=== PATIENT | male | born 1985 | race Hispanic/Latino ===

== ENCOUNTER → 2022-08-15 10:02 | Outpatient (CLI) | payer OTHER, SELFPAY ==
[2022-08-15 11:20] LABS: Add Manual Diff / Slide Review NO; Basophils Absolute Auto 0 /uL (0-100); Basophils Percent Auto 0.5 % (0-2); Eosinophils Absolute Auto 400 /uL (0-450); Eosinophils Percent Auto 3.8 % (2-4); Hematocrit 40.7 % (41-53); Hemoglobin 14.2 g/dL (13.5-17.5); Lymphocytes Absolute Auto 3100 /uL (1100-4500); Mean Corpuscular HGB Conc 34.8 % (30-36); Mean Corpuscular Hemoglobin 31.6 PG (26-34); Monocytes Absolute Auto 600 /uL (0-900); Monocytes Percent Auto 5.8 % (3-14); Neutrophils Absolute Auto 5400 /uL (1500-7000); Neutrophils Percent Auto 56.9 % (50-75); Platelet Count 318 X10^3/uL (150-400); Red Blood Cell Count 4.48 X10^6/uL (4.5-5.9); Red Cell Distribution Width 13.9 % (11.6-14.8); White Blood Cell Count 9.4 X10^3/uL (4.5-11.0)
[2022-08-15 11:36] LABS: BUN Creatinine Ratio 13.6 (6-22); Blood Urea Nitrogen 11 mg/dL (9-20); Calcium 9.3 mg/dL (8.4-10.2); Carbon Dioxide 27 mmol/L (22-32); Chloride 99 mmol/L (98-107); Estimated Glomerular Filt Rate > 60 mL/min (>60); Glucose 134 mg/dL (70-100); HEMOLYSIS < 15 (0-50); Potassium 4.3 mmol/L (3.4-5.1); Sodium 139 mmol/L (137-145)
== END ==
PROVIDERS: Referring Provider Orthopaedic Surgery Orthopaedic Surgery of the Spine; Visit Provider Orthopaedic Surgery Orthopaedic Surgery of the Spine
DX: Z01.812 Encounter for preprocedural laboratory examination (principal)
CPT/HCPCS: 36415; 80048; 85025

== ENCOUNTER 2022-09-03 09:20 | Inpatient (IN) | payer OTHER, SELFPAY ==
[2022-08-27 12:51] VITALS: BMI 37.5
[2022-09-03] VITALS (11 sets, daily range): BP systolic 97–138; BP diastolic 54–85; PULSE 88–107; RESP 12–20; TEMP 36.2–37.3; O2SAT 92–99; BMI 38.6
--- NOTE | 2022-09-03 | DI.RAD.S_ITS ---
PROCEDURE: XR LUMBAR SPINE 2-3V INDICATIONS: L5-S1 TLIF TECHNIQUE: 3 views of the lumbar spine were acquired. COMPARISON: None. FINDINGS: Postsurgical changes of L5-S1 posterior fixation by means of bilateral rods and pedicle screws with interbody device. Appropriate position and appearance of the hardware. IMPRESSION: Expected position status post L5-S1 TLIF. Dictated by: Rey Astorga M.D. on 09/03/2022 at 15:15 Approved by: Rey Astorga M.D. on 09/03/2022 at 15:16
[2022-09-03] MEDS: ACETAMINOPHEN 325 MG TABLET 975 MG PO (10:10)
[2022-09-03] MEDS: GABAPENTIN 600 MG TABLET PO (10:11)
[2022-09-03] MEDS: LACTATED RINGERS 1,000 ML 42 ML IV (10:11)
[2022-09-03 10:24] LABS: COVID19 -Nasal RAPID Negative (Negative)
--- NOTE | 2022-09-03 10:30 | PM.PREOP ---
Pre-operative Note COVID-19 COVID-19 status: Negative Result date/Date tested (Pos, Neg/Pending): 09/02/22 Criteria for continued procedure: Expected advancement of disease process, Possibility delay results in more complex future surgery or treatment, Increased loss of function, Continuing or worsening of significant or severe pain, Deterioration of the patient's condition or overall health and Delay expected to result in less-positive ultimate med/surg outcome Interval Note History & Physical reviewed/Exam performed by Physician: Yes Changes to H&P: No
--- NOTE | 2022-09-03 10:34 | SUR.OPER ---
Supine on padded OR bed, head on pillow, arms secured on padded arm boards at <90 degrees abduction, legs uncrossed, safety belt at thigh, tape over blanket over lower legs.
--- NOTE | 2022-09-03 10:45 | SUR.PREOP ---
Pt cad application support specialist used to interpret pashto to belgian for pt. Pt states he understood and had no further concerns or questions.
[2022-09-03] MEDS: CEFAZOLIN 2 GM/100 ML PREMIX 100 ML IV ×2 (11:15→18:16)
[2022-09-03] MEDS: BUPIVACAINE 0.25% (PF) 60 ML, EPINEPHrine 0.3 MG INJ (11:30)
[2022-09-03] MEDS: BUPIVACAINE LIPOSOME 266 MG/20 ML VIAL INJ (11:31)
--- NOTE | 2022-09-03 13:32 | PM.OP.1 ---
Operative Date/Time/Diagnoses Date of procedure: 09/03/22 Time of procedure: 10:30 Pre-op diagnosis: 1. L5-S1 spinal stenosis with history of laminectomy 2. Lumbar radiculopathy Post-op diagnosis: same Procedure & Clinicians Procedure: 1. L5-S1 Postero-lateral and posterior interbody fusion 2. L5-S1 interbody cage placement. 3. L5-S1 decompressive laminectomy with bilateral facetecomies 4. L5-S1 Posterior non-segmental instrumentation 5. Knifley of bone marrow from iliac crest 6. Utilization of microsurgical technique and operating microscope Same procedure as scheduled: Yes Indications: Patient has been having chronic back pain and worsening lumbar radiculopathy due to a work related injury and history of lumbar laminectomy surgery in the past. Patient failed multiple conservative management with worsening pain weakness and numbness in his lower extremity. Patient has been having difficulty performing activity of daily living. After discussing risks benefits of treatment options, patient elected proceed with surgery. Surgeon: Vreito French Rn Occupational Health: Ruby Walton Click Yes if Unassisted: No Anesthesia Type: General Operative Notes Closure Type: primary Specimen(s): none sent Prosthetic devices, grafts, tissues, transplants, or devices: Globus revolve screws, Rise cage Estimated Blood Loss (mL): 50 Blood products transfused: none Procedure in detail: Patient was seen in the preoperative area. Risks and benefits of the surgery was discussed with the patient. Informed consent was obtained from the patient and placed in the chart. Surgical site was marked. Patient was taken to the operative room. General anesthesia was administered. Prophylactic antibiotic was given to the patient less than 30 min before the incision was made. Patient was placed into a prone position on the Marek table. Patient's back was then prepped and draped in the sterile fashion. Time-out was performed at this time. Using AP and lateral C-arm imaging the interval between L5-S1 was identified and marked on patient's back. A 2 inch incision 2 in from midline was made on the left side first. The fascia was incised in line with skin incision. Globus MARS retractors was placed inside the incision and docked onto the L5 lamina. Using microsurgical technique and operating microscope, a L5 laminectomy and L5-S1 facetectomy was performed using a Kerrison rongeur. Patient was found have severe lateral recess and neural foramen stenosis which was fully decompressed after the laminectomy facetectomy. More than 75% of the facets were removed during the process of decompression rendering L5-S1 level grossly unstable and required a fusion procedure at the same time. The disc space at L5-S1 was identified. And a total diskectomy was performed at L5-S1 level. The endplates were decorticated using a rasp and shaver. The total diskectomy and decortication was performed at L5-S1 level in order to to accomplish a L5-S1 fusion. The local bone from the laminectomy and facetectomy was saved for local bone grafting. After the total diskectomy and decortication was completed, Trifecta bone graft material was combined with local bone that was harvested earlier. At this time, a separate skin is incision was made over the iliac crest. A Jamshidi needle was inserted into the iliac crest through a separate skin incision. 5 cc of bone marrow aspiration was obtained through the separate skin incision using a Jamshidi needle from the iliac crest. The bone marrow aspiration was combined with local bone and the Trifecta bone grafting material. The bone grafting material was placed into the L5-S1 interbody space along with a expandable cage. The cage was expanded to its maximum height using the torque limiting screwdriver. At this time a mirror image incision was made on the right side. The fascia was incised in line with the skin incision. Globus MARS retractor was inserted and docked onto the L5-S1 posterolateral gutter. Using the power drill, posterior-lateral decortication was performed at L5-S1 level until bleeding cortical bone was identified. The remaining bone grafting material was placed into the L5-S1 posterior lateral gutter he order to accomplish posterolateral fusion at the L5-S1 level. Using the double C-arm technique, pedicle screws were placed into the L5-S1 pedicles bilaterally. This was done by placing the Jamshidi needle into the pedicles, then placing the guidewires over the Jamshidi needle, and finally placing the cannulated screws over the guidewires bilaterally. After the pedicle screws were placed, 2 titanium rods was locked into the heads of the pedicle screws using locking caps and torque limiting screwdriver. After all the hardware was placed, and confirmed with AP and lateral C-arm imaging, the wound was then irrigated with sterile normal saline and packed with Ray-Tab gauze for 3 min to accomplish hemostasis. After the gauze was removed the deep fascia was closed with #1 Vicryl suture. The subcutaneous layer was closed with 2-0 Vicryl. The skin was closed with skin topher. Patient tolerated the procedure well. There were no complications. Complications: none Post-operative Condition: stable Disposition: PACU Plan for aftercare: Admit to inpatient hospital
[2022-09-03] MEDS: OXYCODONE IR 5 MG TABLET PO (13:59)
[2022-09-03] MEDS: SODIUM CHLORIDE 0.9% 1,000 ML 100 ML IV (14:31)
[2022-09-03] MEDS: OXYCODONE IR 5 MG TABLET 10 MG PO ×2 (16:17→20:27)
[2022-09-03] MEDS: ATORVASTATIN 20 MG TABLET 40 MG PO (20:26)
[2022-09-03] MEDS: SENNOSIDES 8.6 MG TABLET 17.2 MG PO (20:26)
[2022-09-03] MEDS: METFORMIN HCL 500 MG TABLET 1000 MG PO (20:27)
[2022-09-03] MEDS: DOCUSATE 100 MG CAPSULE PO (20:27)
[2022-09-03] MEDS: HYDROMORPHONE 0.5 MG INJ IV (22:31)
[2022-09-03] MEDS: hydrOXYzine pamoate 25 MG CAPSULE PO (22:31)
[2022-09-04] VITALS: BP 125/63; PULSE 103; RESP 17; TEMP 36.9; O2SAT 96
[2022-09-04] MEDS: OXYCODONE IR 5 MG TABLET 10 MG PO ×6 (00:37→21:28)
[2022-09-04] MEDS: SODIUM CHLORIDE 0.9% 1,000 ML 100 ML IV (01:07)
[2022-09-04] MEDS: CEFAZOLIN 2 GM/100 ML PREMIX 100 ML IV (03:14)
[2022-09-04 04:00] VITALS: BP 121/75; PULSE 90; RESP 18; TEMP 36.7; O2SAT 98
[2022-09-04 07:51] VITALS: BP 107/69; PULSE 85; RESP 18; TEMP 36.6; O2SAT 96
[2022-09-04] MEDS: ACETAMINOPHEN 325 MG TABLET 650 MG PO ×2 (09:11→16:21)
[2022-09-04] MEDS: DOCUSATE 100 MG CAPSULE PO ×2 (09:11→21:29)
[2022-09-04 11:00] VITALS: BP 141/85; PULSE 106; RESP 17; TEMP 36.7; O2SAT 96
--- NOTE | 2022-09-04 11:15 | OT.IP.EVAL ---
Current Diagnoses Other intervertebral disc displacement, lumbar region (09/03/22) Postlaminectomy syndrome, not elsewhere classified (09/03/22) Surgery Performed Operation Date: 09/03/22 10:45 Actual Procedures p L5 -S1 TLIf w. instrumentation - Verito French MD Past Medical History Acid reflux Anxiety COVID-19 virus infection (11/2021) Depression Diabetes (04/2022) HLD (hyperlipidemia) Guatemalan speaking patient Surgical History (Last Reviewed 09/04/22 @ 11:52 by Ruby Walton PA-C) History of lumbar surgery (2014) Hx of shoulder surgery (2013) Occupational Therapy Inpatient Evaluation/Re-Eval M1 PT/OT-IP Prior Functional Status Start: 09/04/22 08:11 Freq: NEEDED Status: Active Protocol: Document 09/04/22 11:05 [facility] (Rec: 09/04/22 11:15 [facility] [id number]) Medical Review Prior Functional Status Medical History Reviewed Yes Diet/Fluid Consistency Regular Communication WNL Mobility and Gait used SPC, has FWW Activities of Daily Living and IADL's modified indep Prior Functional Level (Other details) limited by pain Social History Household Members spouse,children Living Arrangements Apartment/Condo Number of Stairs To Enter/Railing? 14, has railing Home Environment Standard Height Toilet,Tub/ Shower Home Equipment Front Wheel Walker,Straight Cane Employment Status Unknown M2 OT-IP Current Condition Start: 09/04/22 13:06 Freq: Status: Active Protocol: Document 09/04/22 10:23 [facility]3] (Rec: 09/04/22 13:23 [facility]3] [id number]) Occupational Therapy Current Condition Current Condition Evaluation Date 09/04/22 Treatment Diagnosis S/p L5-S1 TLIF Diagnosis Onset Date 09/03/22 Post Operative Precautions Lumbar Precautions Log Roll,No Twisting,Limit Bending,Lifting Restriction of 10 lbs,Gait Belt above Incisional Area M3 OT- IP Subjective and Pain Start: 09/04/22 13:06 Freq: Status: Active Protocol: Document 09/04/22 10:23 [facility]3] (Rec: 09/04/22 13:23 [facility]3] [id number]) OT- Subjective Occupational Therapy Visit Type Type Initial Evaluation Visit Start Time 10:23 Visit Stop Time 11:15 Total Visit Minutes 52 Occupational Therapy Visit Comments Patient Comments Pt agreed to get up for OT eval. Patient/Caregiver Goals To go home. OT Pain Assessment Pain When Pain Assessed During Mobility Pain Present Pain Present Pain Reported Location back Intensity 6 Scale Used Numeric (0 - 10) M4 OT- IP ADL's Start: 09/04/22 13:06 Freq: Status: Active Protocol: Document 09/04/22 10:23 [facility]3] (Rec: 09/04/22 13:23 [facility]3] [id number]) OT NTS-Ezlk-Ttoqrhs General Evaluation Self-Feeding Ability Independent OT ADL-Grooming Comments OT Grooming Comments Pt not wanting to do at this time. OT ADL-Oral Care Comments Oral Care Comments Pt refused. Educated best to spit into a cup or hinge at his hips to best follow his back precautions. OT ADL-Dressing General Eval Lower Body Dressing Ability Maximum Assistance Areas Needing Assistance Socks Comments OT Dressing Comments ABle to show pt LB dressing equipment. Pt states his to assist him. OT ADL-Toileting Comments OT Toileting Comments Pt able to reach underneath appropriately when readjusting his gown. Use of wet one can also be helpful to the pt. OT ADL-Bathing Comments OT Bathing Comments Pt can benefit from a shower chair for safety to shower or sponge off intially and have his present. M5 OT- IP IADL's Start: 09/04/22 13:06 Freq: Status: Active Protocol: Document 09/04/22 10:23 [facility]3] (Rec: 09/04/22 13:23 [facility]3] [id number]) OT-Instrumental Activities of Daily Living Home Safety Awareness Awareness of Need for Assistance at Home Good Awareness Ability to Problem Solve Emergency Able to Problem Solve Situations M6 OT- IP Functional Cognition Start: 09/04/22 13:06 Freq: Status: Active Protocol: Document 09/04/22 10:23 [facility]3] (Rec: 09/04/22 13:23 [facility]3] [id number]) Cognitive Factors Limiting Selfcare Function Cognitive Ability Level of Alertness Alert Patient Orientation Name,Age,Birthday,Month,Date, Year,Day of Week,Place, Situation Attention Span Ability Capable of Focused Attention, Capable of Sustained Attention Ability to Follow Commands Able to Follow One Step Commands Cognitive Comments Cognitive Assessment Comments Pt needing increased time to follow commands but able to follow back precautions well for ADL and mobility needs. OT- Vision and Hearing OT- Hearing Assessment OT- Hearing Assessment WFL OT- Vision Assessment Visual Acuity WFL M7 OT- IP Mobility and Balance Start: 09/04/22 13:06 Freq: Status: Active Protocol: Document 09/04/22 10:23 [facility]3] (Rec: 09/04/22 13:23 [facility]3] [id number]) OT- Bed Mobility Assessment Supine to Sit Supine to Sit Assist Standby Assistance Sit to Supine Sit to Supine Assist Standby Assistance OT-Transfer Assessment Sit to and From Stand Sit to and from Stand Contact Guard Assistance Transfers Transfer Ability Contact Guard Assistance Comments Mobility Comments SBA for log rolling and CGA to stand to FWW and able to walk in the room with CGA. Pt has a high bed at home and able to practice from that height. Pt will need more assist if coming to stand from a lower surface. OT- Balance Assessment Sitting Balance and Reactions Static Sitting Balance Ability Normal Dynamic Sitting Balance Ability Good Standing Balance and Reactions Static Standing Balance Ability Fair Dynamic Standing Balance Ability Fair M8 OT- IP Objective Assessments Start: 09/04/22 13:06 Freq: Status: Active Protocol: Document 09/04/22 10:23 [facility]3] (Rec: 09/04/22 13:23 [facility]3] [id number]) OT-Muscle Tone Assessment Muscle Tone WNL Yes M9 OT- IP Assessment and Plan Start: 09/04/22 13:06 Freq: Status: Active Protocol: Document 09/04/22 10:23 [facility]3] (Rec: 09/04/22 13:23 [facility]3] [id number]) OT Summary Assessment and Plan Potential Rehabilitation Potential Good Analytic Complexity at Evaluation Low Summary OT Impairments Pain,Balance,Functional Mobility,Dressing,Toileting, Bathing,Toilet Transfers, Shower Transfers Progress Towards Goals Progressing Toward Goals Assessment Summary Pt low complexity and main barriers are steps, pain, and will need assist for LB dressing and showering needs. Pt states has a supportive to assist pt at home. Pt to go home when medically stable. Goals Dressing Goal Minimal Assistance Toileting Goal Independent Bathing Goal Minimal Assistance Toilet Transfer Goal Independent Shower Transfer Goal Contact Guard Assistance Days to Meet Goals 2 Frequency of Treatment Frequency Of Treatment Once a Day Treatment Plan OT Treatment Plan ADL Training,Functional Mobility,Patient/Family Education,Discharge Planning Discharge Recommendations OT Discharge Recommendations Home with Assistance Home Equipment Needs shower chair Transportation Needs at Discharge Private Vehicle
--- NOTE | 2022-09-04 11:15 | PT.IIE ---
Current Diagnoses Other intervertebral disc displacement, lumbar region (09/03/22) Postlaminectomy syndrome, not elsewhere classified (09/03/22) Surgery Performed Operation Date: 09/03/22 10:45 Actual Procedures p L5 -S1 TLIf w. instrumentation - Verito French MD Surgical History (Last Updated 08/27/22 @ 13:19 by Danielle Glover RN) History of lumbar surgery (2014) Hx of shoulder surgery (2013) Medical History Acid reflux Anxiety COVID-19 virus infection (11/2021) Depression Diabetes (04/2022) HLD (hyperlipidemia) Dominican speaking patient Physical Therapy Inpatient Evaluation/Re-Eval M1 PT/OT-IP Prior Functional Status Start: 09/04/22 08:11 Freq: NEEDED Status: Active Protocol: Document 09/04/22 11:05 [facility] (Rec: 09/04/22 11:15 [facility] [id number]) Medical Review Prior Functional Status Medical History Reviewed Yes Diet/Fluid Consistency Regular Communication WNL Mobility and Gait used SPC, has FWW Activities of Daily Living and IADL's modified indep Prior Functional Level (Other details) limited by pain Social History Household Members spouse,children Living Arrangements Apartment/Condo Number of Stairs To Enter/Railing? 14, has railing Home Environment Standard Height Toilet,Tub/ Shower Home Equipment Front Wheel Walker,Straight Cane Employment Status Unknown M2 PT-IP Current Condition Start: 09/04/22 08:11 Freq: NEEDED Status: Active Protocol: Document 09/04/22 11:05 [facility] (Rec: 09/04/22 11:15 [facility] [id number]) Physical Therapy Current Condition Current Condition Evaluation Date 09/04/22 Treatment Diagnosis weakness s/p lumbar surgery Onset Date 09/03/22 M3 PT-IP Subjective Start: 09/04/22 08:11 Freq: NEEDED Status: Active Protocol: Document 09/04/22 11:05 [facility] (Rec: 09/04/22 11:15 [facility] [id number]) Subjective Physical Therapy Visit Type Type Initial Evaluation Visit Start Time 10:45 Visit Stop Time 11:05 Total Visit Minutes 20 Physical Therapy Visit Comments Patient Goals return home with assitance of Therapy Pain Assessment Pain When Pain Assessed During Mobility Pain Present Pain Present Pain Reported Location back Intensity 7 Description Acute,Spasm Pain Management Techniques Apply Cold,Distraction, Modification of Treatment, Timing of Activity with Medications M4 PT-IP Mobility and Gait Start: 09/04/22 08:11 Freq: NEEDED Status: Active Protocol: Document 09/04/22 11:05 [facility] (Rec: 09/04/22 11:15 [facility] [id number]) PT-Bed Mobility Assessment Rolling Type of Rolling Log Rolling,Roll to Right Level of Assist Standby Assistance Supine to Sit Supine to Sit Contact Guard Assistance Sit to Supine Sit to Supine Standby Assistance Scooting Scooting to Edge of Bed Standby Assistance PT-Transfer Assessment Sit to and From Stand Sit to and from Stand Contact Guard Assistance Transfers Transfer Technique ambulated Transfer Ability Level of Assist Contact Guard Assistance Comments Mobility Comments patient is 6'1, has high bed. Transfer sit to stand with bed elevated. Gait Assessment Gait Gait Assistance Required: Contact Guard Assist Distance (Feet) 20 Able to Maintain Weight Bearing Status Yes During Gait Assistive Devices Assistive Device Gait Belt,Front Wheeled Walker Orthotic/Prosthetic Devices or Brace: No Gait Deviations General Gait Pattern Antalgic,Decreased Stride Length,Decreased Feet Clearance Factors Limiting Gait Function Factors Limiting Gait Function Decreased Sensation,Decreased Strength,Pain Comments Gait Comments heavy use of UE's on walker, slow gait. Pain level 7/10 Stair Climbing Assessment Comments Stair Climbing Comments will attempt in PM if patient laith. Patient has 14 stairs to get up to apartment PT-Balance Assessment Sitting Balance and Reactions Static Sitting Balance Ability Normal Dynamic Sitting Balance Ability Normal Standing Balance and Reactions Static Standing Balance Ability Fair Dynamic Standing Balance Ability Fair Device Used FWW M5 PT-IP Objective Assessments Start: 09/04/22 08:11 Freq: NEEDED Status: Active Protocol: Document 09/04/22 11:05 [facility] (Rec: 09/04/22 11:15 [facility] [id number]) Orientation Orientation/Cognition Level of Alertness Alert Orientation Name,Place,Situation Language Function Ability No Deficits Noted Safety Awareness Understands Safety Issues Memory Description No Deficits Noted Gross Range of Motion Upper Extremity ROM Assessment Within Functional Limits Lower Extremity ROM Assessment Within Functional Limits Strength Upper Extremity Strength Assessment Within Functional Limits Lower Extremity Strength Assessment Left Impaired Sensation Assessment Sensation Gross Sensation Left LE Impaired Sensation Description Numbness,Pain M6 PT-IP Treatment Start: 09/04/22 08:11 Freq: NEEDED Status: Active Protocol: Document 09/04/22 11:05 [facility] (Rec: 09/04/22 11:15 [facility] [id number]) Physical Therapy Treatment Other Treatments Other Treatment Performed log roll, bed mobility M7 PT-IP Assessment and Plan Start: 09/04/22 08:11 Freq: NEEDED Status: Active Protocol: Document 09/04/22 11:05 [facility] (Rec: 09/04/22 11:15 [facility] [id number]) PT Summary Assessment and Plan Potential Rehabilitation Potential Good Status of Condition at Evaluation Evolving Summary Impairments Pain,Strength,Bed Mobility, Transfers,Gait,Activity Tolerance Assessment Summary Patient s/p lumbar surgery with limitations in mobility primarily due to pain as well as radicular symptoms left LE. Has 14 stairs at home that he will have to ambulate to get into his apartment. Will benefit from PT to help him improve his mobility skills so he can be safely discharged home with the assistance of his . Goals Bed Mobility Goal Independent Transfer Goal Independent Gait Goal Independent Gait Distance 100 Days to Meet Goals 3 Frequency of Treatment Frequency Of Treatment Twice a Day Treatment Plan Physical Therapy Treatment Plan Bed Mobility Training,Transfer Training,Gait Training,Post Op Education,Hot or Cold Pack Precautions Lumbar Precautions Log Roll,No Twisting,Limit Bending,Lifting Restriction of 10 lbs,Gait Belt above Incisional Area Recommendations To Nursing Amount of Assist Needed 1 Person Assist Discharge Recommendations PT Discharge Recommendations Home with Assistance Transportation Needs at Discharge Private Vehicle
--- NOTE | 2022-09-04 11:50 | P.DS_ITS ---
History of Present Illness History of Present Illness Date Patient Seen: 09/04/22 Time Patient Seen: 07:30 Chief complaint: Translaminar Interbody Fusion/Laminotomy Narrative: Patient is resting comfortably in bed this morning. He states he is doing well and having minimal pain that is well controlled with medication. He would like to go home today if therapy goes well and he is able to manage stairs safely. Discharge Providers Provider Date of admission: 09/03/22 09:20 Discharge Date: 09/04/22 Primary care physician: Nadine Portillo Consults: 09/03/22 14:11 Consult to Occupational Therapy Evaluate & Treat Comment: Physician Instructions: Evaluate and treat Consult to Physical Therapy Evaluate & Treat Comment: Physician Instructions: Evaluate and Treat Discharge provider: Ruby Wlaton PA-C Summary Hospital Course Discharge Diagnosis: Status post TLIF Hospital Course: Operative Date/Time/Diagnoses Date of procedure: 09/03/22 Time of procedure: 10:30 Pre-op diagnosis: 1. L5-S1 spinal stenosis with history of laminectomy 2. Lumbar radiculopathy Post-op diagnosis: same Procedure & Clinicians Procedure: 1. L5-S1 Postero-lateral and posterior interbody fusion 2. L5-S1 interbody cage placement. 3. L5-S1 decompressive laminectomy with bilateral facetecomies 4. L5-S1 Posterior non-segmental instrumentation 5. [place] of bone marrow from iliac crest 6. Utilization of microsurgical technique and operating microscope Same procedure as scheduled: Yes Indications: Patient has been having chronic back pain and worsening lumbar radiculopathy due to a work related injury and history of lumbar laminectomy surgery in the past. Patient failed multiple conservative management with worsening pain weakness and numbness in his lower extremity.? Patient has been having difficulty performing activity of daily living.? After discussing risks benefits of treatment options, patient elected proceed with surgery. Surgeon: Verito French Multimedia Services Manager: Ruby Walton Click Yes if Unassisted: No Anesthesia Type: General Operative Notes Closure Type: primary Specimen(s): none sent Prosthetic devices, grafts, tissues, transplants, or devices: Globus revolve screws, Rise cage Estimated Blood Loss (mL): 50 Blood products transfused: none Status at Discharge Cognitive/behavioral status at discharge: oriented Overall status at discharge: patient is progressing back to baseline Exam Vital Signs (past 8 hours): - 09/04/22 04:00 09/04/22 07:51 Temperature 98.1 F 97.8 F Pulse Rate 90 85 Respiratory Rate 18 18 Blood Pressure 121/75 107/69 Pulse Oximetry 98 96 Oxygen Flow Rate 0 Oxygen Delivery Method Room Air Oxygen Flow Rate 0 Narrative Exam Narrative: Awake, alert, and oriented. Intraoperative dressing clean, dry, and intact. Strength and sensation intact to bilateral lower extremities. Bilateral calves soft, compressible, nontender with no palpable cords or masses. PFSH Medical History Acid reflux Anxiety COVID-19 virus infection (11/2021) Depression Diabetes (04/2022) HLD (hyperlipidemia) [place] speaking patient Surgical History History of lumbar surgery (2014) Hx of shoulder surgery (2013) Social History household members: spouse and children Smoking Status: Never smoker alcohol intake: current Discharge Assessment & Plan Assessment and Plan Assessment: Patient is progressing as expected after surgery. Plan of Treatment: Plan to discharge to home today if patient is able to manage stairs safely and is cleared by Physical therapy. Patient aware of mobility restrictions. He will follow up with Orthopedics as scheduled, 2 weeks after surgery. Discharge Plan Discharge Plan Patient Disposition: Home Provider Discharge Comment: Discharge to home if safely able to manage stairs and is cleared by PT Discharge orders & Medications Prescriptions: New acetaminophen 325 mg Tablet 650 mg PO Q6HR PRN (Reason: Pain, Mild (1-3)) Qty: 120 0RF oxycodone 5 mg Tablet 5 mg PO Q3HR PRN (Reason: Pain, Severe (7-10)) Qty: 40 0RF hydroxyzine pamoate 25 mg Capsule 25 mg PO Q4HR PRN (Reason: Nausea And Vomiting) Qty: 40 0RF Continued atorvastatin 40 mg Tablet 40 mg PO BEDTIME metformin 1,000 mg tablet 1,000 mg PO 2100 Patient Comments: TAKE 1 TABLET BY MOUTH TWICE DAILY WITH MEALS Follow up/Referrals: Nadine Portillo ARNP [Primary Care Provider] - Verito French MD [Physician] - As previously scheduled Diet/Activity/Treatments Diet: Diet as Tolerated Activity: Up and walking as tolerated. Skin/Wound/Dressing Care Report to your healthcare provider any signs of infection, such as:: chills, fever, night sweats, increased pain, unusual drainage and unusual redness Dressing: Keep dressing clean, dry, and intact until 2 week follow-up visit with Orthopedics. If dressing becomes wet please contact our office for dressing change. Visit Report/Discharge Packet Instructions: DI for Transforaminal Lumbar Interbody Fusion Stand Alone Forms: Patient Portal/API, Stroke Signs & Symptoms, Surgery Discharge Discharge Data Primary Care Provider: Nadine Portillo VTE Deep Vein Thrombosis/Pulmonary Embolism Present on Admission: No
[2022-09-04] MEDS: hydrOXYzine pamoate 25 MG CAPSULE PO (13:23)
--- NOTE | 2022-09-04 13:56 | CM.DANOTE ---
Addendum entered by NELLIE Kinney 09/04/22 15:35: ADD: Per PT, attempted stairs this afternoon and pt unable to complete due to pain and pt currently not stable for d/c home this evening. Will attempt again tomorrow morning. BF Original Note: Patient is a 37 yo male who was admitted on 09/03/22 for TLIF. Pt has L&I for this admission and his PCP is Dr. Nadine Portillo. EMR was reviewed. Per Ortho PA, pt tolerated procedure well and to keep working with PT/OT today and possible d/c this evening if cleared by PT/OT. Per PT/OT, pt able to participate in therapies but will need to do stairs this afternoon as he has 14 stairs to enter his apartment. Will work with his this afternoon to determine if safe for home today vs tomorrow. SW met bedside with pt and explained role and pt understands and can speak Ivorian but Hungarian is his primary language. Pt confirms he lives in [place] with his and kids in an apt on the second story and no elevator. Pt is typically independent at baseline with ADL's but has been needing a cane lately for ambulation and does have a walker at home for use after surgery. Pt states his spouse is available and able to provide assist as needed and can provide transport at d/c and pt is hopeful for home this evening if possible and does not anticipate any needs. Plan: SW to follow for afternoon PT with stairs to determine if safe for d/c home tonight vs tomorrow and any further identified discharge planning needs. NELLIE Kinney Discharge Planning/Care Management CM Discharge Assessment Start: 09/04/22 13:54 Freq: Status: Active Protocol: Document 09/04/22 13:54 BF (Rec: 09/04/22 13:56 [id number]) Discharge Planning Assessment Assigned Licensed Occupational Therapy Assistant NELLIE Pineda DPOA/Assigned Designee Name informally spouse Advance Directives? No Advance Directives on File No History Provided By Patient,Medical Record Has Patient been admitted in last 30 No days? Prior Living Arrangements Apartment/Condo Household Members spouse,children Type of transporation used prior to Drives own vehicle admit Independent with ADL's Yes Is patient alert and oriented? Yes Caregiver for Another Yes: children at home Community Services used prior to Physical Therapy admission: [facility] Already Rented / Owned FWW / Walker,Cane Patient/Family Preference OP PT Therapy Barriers to Discharge No Discharge Plan Home Community Services Physical Therapy Transportation Arrangement Spouse or brother likely to provide transport at d/c Referrals Initiated None needed Whiteboard Updated in Patient Room with Yes name and ext. 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 Completed with Language Exchange [phone] EX75 Diagnostic Results BMP/CMP,CBC Comment Labs @ 08/15/22 Primary Care Provider Nadine Portillo Seen Specialist in Last 12 Months Yes Specialist Seen Orthopedist,Other Primary Language Manager Provider Relations Required Yes Comment Language Exchange [phone] EX40 Height 185.42 cm Weight 129.274 kg Body Mass Index (BMI) 37.5 Hearing Ability Normal Visual Impairment No Limitations Visual Assist None Dentition Type Teeth, Natural Present Barriers to Learning Language Hx Anesthesia Reactions No Hx Family Anesthesia Reaction No Hx Malignant Hyperthermia No Hx Blood Transfusions No Anesthesia Review Requested No Production Officer No alcohol intake current alcohol intake frequency a few times a week Smoking Status Never smoker Substance Use Type marijuana Comment Pt advised not to smoke marijuana 24 hours prior to surgery Pain Present Pain Reported Musculoskeletal Symptoms Abnormal Gait,Back Pain, Difficulty Walking,Numbness, Radiating Pain into Limb History of Falling (Recent or History of Yes ) Patient is completely paralyzed or No completely immobile Prosthesis or Orthotic Device Cane Mental Status Oriented to own ability Is patient on oxygen? No Does patient have [place]/SOB No Hx Sleep Apnea No Currently Taking a Beta Lia No Hx Chest Pain Yes: Related to anxiety Hx SOB No Hx Syncope or Dizziness No Anti-Coagulant Therapy No Has a Score Caller No Cardiac Testing No Hx Pacemaker/ICD No Pacemaker Rep Required? No Diet Type At Home Regular,Diabetic Dysphagia No Gastrointestinal Symptoms Constipation,Reflux Urinary Catheter Present No Hx Urinary Self Catheterization No Diabetes Yes: Pt checks blood sugar 3x/ week Hx Drug Resistant Organism No Presence of External or Internal Medical No Devices Received a COVID vaccine? Yes Received all doses? No Marital Status Lives With spouse,children Current Living Arrangements Apartment/Condo Number of Floors (Floors) One Floor Support System Spouse Does the Patient Have Assistance After Yes Surgery Patient Discharge Plan Description Return Home Comment Pt advised overnight length of stay per surgeon Feels Safe in Current Environment Yes Been Physically Hurt or Threatened By a No Person in Current Environment Do you have thoughts of harming yourself None or others? Are you currently considering suicide? No Do you have a plan to hurt yourself or No Plan others? Do You Have Any Spiritual Beliefs That No May Affect Your HC Choices? Do You Have Any Cultural Practices That No May Affect Your HC Choices? Comment Druze Who Can We Speak to About Patient's Care Family, friends Identifying Code for Release of Patient Declines to issue Information Health Care Proxy/Next of Kin Koki () Health Care Proxy Emergency Contact Name oKki () Emergency Contact Advance Directives? No Power of Career Placement Specialist Yes Power of Career Placement Specialist Name Koki () Power of Career Placement Specialist PAC Instructions Diabetes instructions, Medications to take/avoid, Nasal antibiotic,No ETOH/ petroleum product on skin DOS, NPO,Pre-surgical wash,Sturdy shoes/comfortable clothes,Do not bring valuables and remove jewelry
[2022-09-04] MEDS: HYDROMORPHONE 0.5 MG INJ IV (14:24)
--- NOTE | 2022-09-04 14:36 | PT.IPTN ---
Current Diagnoses Other intervertebral disc displacement, lumbar region (09/03/22) Postlaminectomy syndrome, not elsewhere classified (09/03/22) Surgery Performed Operation Date: 09/03/22 10:45 Actual Procedures p L5 -S1 TLIf w. instrumentation - Verito French MD Physical Therapy Treatment Note M2 PT-IP Current Condition Start: 09/04/22 08:11 Freq: NEEDED Status: Active Protocol: Document 09/04/22 14:27 [facility] (Rec: 09/04/22 14:36 [facility] [id number]) Physical Therapy Current Condition Current Condition Evaluation Date 09/04/22 Treatment Diagnosis weakness s/p lumbar surgery Onset Date 09/03/22 M3 PT-IP Subjective Start: 09/04/22 08:11 Freq: NEEDED Status: Active Protocol: Document 09/04/22 14:27 [facility] (Rec: 09/04/22 14:36 [facility] [id number]) Subjective Physical Therapy Visit Type Type Treatment Note Visit Start Time 13:55 Visit Stop Time 14:28 Total Visit Minutes 33 Number of HOMEMAKER COMPANION Visits 0 Physical Therapy Visit Comments Patient Comments States his pain is 5/10 at rest, 7/10 sitting. With trial stairs reported 10+ pain Patient Goals return home with assitance of Therapy Pain Assessment Location back Intensity 7 Description Acute,Spasm Pain Management Techniques Apply Cold,Distraction, Modification of Treatment, Timing of Activity with Medications M4 PT-IP Mobility and Gait Start: 09/04/22 08:11 Freq: NEEDED Status: Active Protocol: Document 09/04/22 14:27 [facility] (Rec: 09/04/22 14:36 [facility] [id number]) PT-Bed Mobility Assessment Rolling Type of Rolling Log Rolling,Roll to Right Level of Assist Standby Assistance Supine to Sit Supine to Sit Minimal Assistance Scooting Scooting to Edge of Bed Standby Assistance PT-Transfer Assessment Sit to and From Stand Sit to and from Stand Minimal Assistance Comments Mobility Comments min assist transfers sit to stand were from elevated bed and from w/c with 2 pillows on seat to raise up Gait Assessment Gait Gait Assistance Required: Contact Guard Assist Distance (Feet) 40 Able to Maintain Weight Bearing Status Yes During Gait Assistive Devices Assistive Device Gait Belt,Front Wheeled Walker Orthotic/Prosthetic Devices or Brace: No Gait Deviations General Gait Pattern Antalgic,Decreased Stride Length,Decreased Feet Clearance Factors Limiting Gait Function Factors Limiting Gait Function Decreased Sensation,Decreased Strength,Pain Comments Gait Comments heavy use of UE's on walker, slow gait. Pain level 6/10 with gait on level Stair Climbing Assessment Evaluation Level of Assist On Stairs Moderate Assistance Devices Stair Climbing Assistive Devices Straight Cane,Left Railing Technique/Endurance Number of Steps Climbed 0 Comments Stair Climbing Comments attempted to climb stairs, unable, reporting 10/10 pain with attempt PT-Balance Assessment Sitting Balance and Reactions Static Sitting Balance Ability Normal Dynamic Sitting Balance Ability Normal Standing Balance and Reactions Static Standing Balance Ability Fair Dynamic Standing Balance Ability Fair Device Used FWW M5 PT-IP Objective Assessments Start: 09/04/22 08:11 Freq: NEEDED Status: Active Protocol: Document 09/04/22 11:05 [facility] (Rec: 09/04/22 11:15 [facility] [id number]) Orientation Orientation/Cognition Level of Alertness Alert Orientation Name,Place,Situation Language Function Ability No Deficits Noted Safety Awareness Understands Safety Issues Memory Description No Deficits Noted Gross Range of Motion Upper Extremity ROM Assessment Within Functional Limits Lower Extremity ROM Assessment Within Functional Limits Strength Upper Extremity Strength Assessment Within Functional Limits Lower Extremity Strength Assessment Left Impaired Sensation Assessment Sensation Gross Sensation Left LE Impaired Sensation Description Numbness,Pain M6 PT-IP Treatment Start: 09/04/22 08:11 Freq: NEEDED Status: Active Protocol: Document 09/04/22 14:27 [facility] (Rec: 09/04/22 14:36 [facility] [id number]) Physical Therapy Treatment Education Education Provided Precautions,Safety Other Treatments Other Treatment Performed log roll, bed mobility M7 PT-IP Assessment and Plan Start: 09/04/22 08:11 Freq: NEEDED Status: Active Protocol: Document 09/04/22 14:27 [facility] (Rec: 09/04/22 14:36 [facility] [id number]) PT Summary Assessment and Plan Potential Rehabilitation Potential Good Status of Condition at Evaluation Evolving Summary Impairments Pain,Strength,Bed Mobility, Transfers,Gait,Activity Tolerance Assessment Summary Patient able to double ambulation on level surface gait this afternoon, but was unable to ambulate on stairs due to severity of pain. He is not yet ready to discharge home. Will see again in am. Goals Bed Mobility Goal Independent Transfer Goal Independent Gait Goal Independent Gait Distance 100 Days to Meet Goals 3 Frequency of Treatment Frequency Of Treatment Twice a Day Treatment Plan Physical Therapy Treatment Plan Bed Mobility Training,Transfer Training,Gait Training,Post Op Education,Hot or Cold Pack Precautions Lumbar Precautions Log Roll,No Twisting,Limit Bending,Lifting Restriction of 10 lbs,Gait Belt above Incisional Area Recommendations To Nursing Amount of Assist Needed 1 Person Assist Discharge Recommendations PT Discharge Recommendations Home with Assistance Transportation Needs at Discharge Private Vehicle
[2022-09-04 15:00] VITALS: BP 130/80; PULSE 97; RESP 19; O2SAT 99
[2022-09-04 20:00] VITALS: BP 125/78; PULSE 98; RESP 18; TEMP 36.8; O2SAT 99
[2022-09-04] MEDS: ATORVASTATIN 20 MG TABLET 40 MG PO (21:29)
[2022-09-04] MEDS: SENNOSIDES 8.6 MG TABLET 17.2 MG PO (21:29)
[2022-09-04] MEDS: METFORMIN HCL 500 MG TABLET 1000 MG PO (21:29)
[2022-09-05] MEDS: OXYCODONE IR 5 MG TABLET 10 MG PO ×4 (02:25→16:07)
[2022-09-05] MEDS: hydrOXYzine pamoate 25 MG CAPSULE PO ×4 (02:25→16:07)
[2022-09-05 04:00] VITALS: BP 118/69; PULSE 99; RESP 16; TEMP 36.5; O2SAT 94
[2022-09-05] MEDS: HYDROMORPHONE 0.5 MG INJ IV (09:15)
[2022-09-05] MEDS: DOCUSATE 100 MG CAPSULE PO (09:17)
--- NOTE | 2022-09-05 09:34 | PT.IPTN ---
Current Diagnoses Other intervertebral disc displacement, lumbar region (09/03/22) Postlaminectomy syndrome, not elsewhere classified (09/03/22) Surgery Performed Operation Date: 09/03/22 10:45 Actual Procedures p L5 -S1 TLIf w. instrumentation - Verito French MD Physical Therapy Treatment Note M2 PT-IP Current Condition Start: 09/04/22 08:11 Freq: NEEDED Status: Active Protocol: Document 09/05/22 09:08 SP (Rec: 09/05/22 11:57 SP [id number]) Physical Therapy Current Condition Current Condition Evaluation Date 09/04/22 Treatment Diagnosis weakness s/p lumbar surgery Onset Date 09/03/22 M3 PT-IP Subjective Start: 09/04/22 08:11 Freq: NEEDED Status: Active Protocol: Document 09/05/22 09:08 SP (Rec: 09/05/22 11:57 SP [id number]) Subjective Physical Therapy Visit Type Type Treatment Note Visit Start Time 09:08 Visit Stop Time 09:34 Total Visit Minutes 26 Notes Vitals: supine BP 125/78 HR 106 SaO2 95% Nurse in room when arrived provided premedication via IV. Number of DROP SHIPMENT CLERK Visits 1 Physical Therapy Visit Comments Patient Comments Pt willing to work with therapy. Patient Goals return home with assistance of his Therapy Pain Assessment Pain When Pain Assessed During Mobility Pain Present Pain Present Pain Reported Location back Intensity 8 Scale Used Numeric (0 - 10) Description Aching,Pressure,Spasm,With Movement Pain Behaviors Facial Grimacing,Guarding Pain Management Techniques Distraction,Modification of Treatment,Re-positioning, Timing of Activity with Medications M4 PT-IP Mobility and Gait Start: 09/04/22 08:11 Freq: NEEDED Status: Active Protocol: Document 09/05/22 09:08 SP (Rec: 09/05/22 11:57 SP [id number]) PT-Bed Mobility Assessment Rolling Type of Rolling Log Rolling,Roll to Right Level of Assist Moderate Assistance Supine to Sit Supine to Sit Minimal Assistance,Bedrails Scooting Scooting to Edge of Bed Standby Assistance PT-Transfer Assessment Sit to and From Stand Sit to and from Stand Contact Guard Assistance, Minimal Assistance,1 Person Assistance,Use of Upper Extremities Equipment Transfer Assistive Device Gait Belt,Front Wheeled Walker Orthotic/Prosthetic Devices or Brace: No Transfers Transfer Destination Chair,Wheelchair Transfer Technique ambulated w/FWW Transfer Ability Level of Assist Contact Guard Assistance, Minimal Assistance,Use of Upper Extremities Comments Mobility Comments Min A for bed mob right to sit , CG/MIn A initial STS w/cues push from bed and reach back each (BUE) for slow descent. SPT to chair w/ FWW, gait to w /c in hallway, heavy BUE on FWW little unsteady BLEs but no buckling CGA approx 15 ft. Wheeled down to stairs. Ascend /descend 5 sets 3 stairs L HR and SPC in RUE step to patterning Min A initially then decreased to CGA as steps progressed. Pt required sit rest after stairs. wheeled back toward room. Gait approx 80 ft w/ FWW, cued upright posturing increase foot clearance good stride and awareness of quad faciliation into heel stride/midstance/ toe off. Pt returned do chair when back in room. Discussed recommending 26/01 of assist CGA for now and in agreement not 100% stable BLEs and why using BUEs for support more on FWW. Pt requested walking with nursing more today between PT appts to allow increase strength opportunities, DROP SHIPMENT CLERK in agreement. PT is ok to return home with spouse when medically cleared and HHPT to progress strength and functional mobility independence back to PLOF. SPouse won't be able to come until after 4 due to picking up kids at school. Gait Assessment Gait Gait Assistance Required: Contact Guard Assist Distance (Feet) 80 Able to Maintain Weight Bearing Status Yes During Gait Assistive Devices Assistive Device Gait Belt,Front Wheeled Walker Orthotic/Prosthetic Devices or Brace: No Gait Deviations General Gait Pattern Antalgic,Decreased Stride Length,Decreased Feet Clearance Factors Limiting Gait Function Factors Limiting Gait Function Decreased Activity Tolerance, Decreased Sensation,Decreased Strength,Pain,Poor Balance Comments Gait Comments heavy use of UE's on walker, slow gait. Pain level 8/10 with gait on level, little unsteady LEs see mobility comments. Stair Climbing Assessment Evaluation Level of Assist On Stairs Contact Guard Assistance, Minimal Assistance,1 Person Assistance Devices Stair Climbing Assistive Devices Straight Cane,Left Railing Technique/Endurance Stair Climbing Direction Ascend and Descend Stair Climbing Technique Step to Step Number of Steps Climbed 3 Stair Climbing Set # Repetitions (reps) 5 Comments Stair Climbing Comments see mobility comments. PT-Balance Assessment Sitting Balance and Reactions Static Sitting Balance Ability Normal Dynamic Sitting Balance Ability Normal Standing Balance and Reactions Static Standing Balance Ability Fair Dynamic Standing Balance Ability Fair Device Used FWW M5 PT-IP Objective Assessments Start: 09/04/22 08:11 Freq: NEEDED Status: Active Protocol: Document 09/04/22 11:05 SAK (Rec: 09/04/22 11:15 SAK [id number]) Orientation Orientation/Cognition Level of Alertness Alert Orientation Name,Place,Situation Language Function Ability No Deficits Noted Safety Awareness Understands Safety Issues Memory Description No Deficits Noted Gross Range of Motion Upper Extremity ROM Assessment Within Functional Limits Lower Extremity ROM Assessment Within Functional Limits Strength Upper Extremity Strength Assessment Within Functional Limits Lower Extremity Strength Assessment Left Impaired Sensation Assessment Sensation Gross Sensation Left LE Impaired Sensation Description Numbness,Pain M6 PT-IP Treatment Start: 09/04/22 08:11 Freq: NEEDED Status: Active Protocol: Document 09/05/22 09:08 SP (Rec: 09/05/22 11:57 SP [id number]) Physical Therapy Treatment Education Education Provided Precautions,Safety Other Treatments Other Treatment Performed log roll, bed mobility M7 PT-IP Assessment and Plan Start: 09/04/22 08:11 Freq: NEEDED Status: Active Protocol: Document 09/05/22 09:08 SP (Rec: 09/05/22 12:01 SP [id number]) PT Summary Assessment and Plan Potential Rehabilitation Potential Good Status of Condition at Evaluation Evolving Summary Impairments Pain,Strength,Bed Mobility, Transfers,Gait,Activity Tolerance Progress Towards Goals Progressing Toward Goals,Slow Progress due to Pain,Slow Progress due to Activity Tolerance Assessment Summary Min A for bed mob believes his spouse can assist him, cues for positioning of BUEs self righting. CG/MIn A during STS/ gait w/ FWW continues heavy BUEs on FWW and little unsteady BLEs but improves with cues quad facilitaiton and stair mgt navigation. Pt would benefit from HHPT to progress strength and return increased funcitonal mobility and ok to return home with spouse approx post 4pm (when spouse able to arrive) when medically cleared. Goals Bed Mobility Goal Independent Transfer Goal Independent Gait Goal Independent Gait Distance 100 Days to Meet Goals 3 Frequency of Treatment Frequency Of Treatment Twice a Day Treatment Plan Physical Therapy Treatment Plan Bed Mobility Training,Transfer Training,Gait Training,Post Op Education,Hot or Cold Pack Other Recommendations and Next Treatment increase distance gait w/FWW, Focus STS from chair, standing balance activities. Continue ed breath/ ab bracing needed for mobility support. Precautions Lumbar Precautions Log Roll,No Twisting,Limit Bending,Lifting Restriction of 10 lbs,Gait Belt above Incisional Area Other Precautions good 3/3 recall precautions Recommendations To Nursing Amount of Assist Needed 1 Person Assist Discharge Recommendations PT Discharge Recommendations Home with 26/01 Assist Available,Home Health Transportation Needs at Discharge Private Vehicle
[2022-09-05 11:30] VITALS: BP 120/68; PULSE 97; RESP 17; TEMP 36.6; O2SAT 97
--- NOTE | 2022-09-05 11:44 | P.PN_ITS ---
Subjective Subjective Date Patient Seen: 09/05/22 Time Patient Seen: 07:30 Interval history: Patient is lying on his side this morning complaining of worse back pain today than yesterday. He also complains of left lateral thigh numbness. Denies tingling or shooting pain. Denies nausea, vomiting, fever, chills. He is looking forward to trying stairs with physical therapy today. Exam Vital Signs (past 8 hours): - 09/05/22 04:00 09/05/22 10:03 Temperature 97.7 F 98 F Pulse Rate 99 H 97 H Respiratory Rate 16 17 Blood Pressure 118/69 120/68 Pulse Oximetry 94 97 Oxygen Flow Rate 0 Oxygen Delivery Method Room Air Oxygen Flow Rate 0 Narrative Exam Narrative: Awake, alert, and oriented. Distal portion of intraoperative dressing not intact, though it remains clean and dry. Strength and sensation intact to bilateral lower extremities, except for left lateral thigh with decreased sensation. Bilateral calves soft, compressible, nontender with no palpable cords or masses. PFSH Medical History Acid reflux Anxiety COVID-19 virus infection (11/2021) Depression Diabetes (04/2022) HLD (hyperlipidemia) [place] speaking patient Surgical History History of lumbar surgery (2014) Hx of shoulder surgery (2013) Social History household members: spouse and children Smoking Status: Never smoker alcohol intake: current Assessment & Plan Post-op Postoperative Procedures: Procedures Operation Date: 09/03/22 10:45 Actual Procedure Side Surgeon p L5 -S1 TLIf w. instrumentation Verito French MD Postoperative day: 2 Postoperative status: doing well Postoperative status narrative: Patient progressing as expected after spine surgery Postoperative plan narrative: Plan to discharge to home with once able to manage stairs safely and cleared by physical therapy. He will follow up with Orthopedics 2 weeks after surgery. Quality VTE Deep Vein Thrombosis/Pulmonary Embolism Present on Admission: No
--- NOTE | 2022-09-05 12:38 | CM.DPC ---
Addendum entered by NELLIE Kinney 09/05/22 13:31: ADD: Return call from Alejandra Moncada at [facility] [phone] stating she is willing to review for HH auth and requests clinicals be faxed to [phone] and provided Rika contact info as she states if approved she can coordinate with Rikacatherine DEJESUS as well and will likely happen after the weekend for all to get uploaded and determination made. MADELEINE faxed Alejandra the requested clinicals and [facility] the new referral with [facility] and orders and Alejandra Gasca contact info. 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 MADELEINE called the local HH agencies and confirmed that [facility] is very difficult to get HH approved and they typically always deny. MADELEINE called Yanely at [facility] [phone] and discussed recommendation for HH for discharge today for pt's active [facility] claim [id number] and she will contact their RN reviewer to determine if they can help get approval for HH PT at least and will call back. Otherwise pt will need to follow up with Ortho after d/c and use outpt PT. Plan: Patient to d/c home today via spouse POV around 1600 and SW to follow for return call from [facility] to determine if HH an option, otherwise outpt PT and outpt f/u with Ortho. NELLIE Kinney
--- NOTE | 2022-09-05 13:41 | OT.IPNOTE ---
Went to see pt for showering needs and pt states rather have his to assist him. Able to go over needs for shower chair and hand held shower spray. Able to notify nursing aid of pt's request to shower later. Pt up in the room with fww independently and good safety. NO charge.
--- NOTE | 2022-09-05 17:22 | PC.NURSE ---
WHEELED PATIENT TO PHARMACY TO GET SCRIPTS AND BACK. PATIENT EATING DINNER BACK IN ROOM, WAITING FOR TO PICKUP
== END 2022-09-05 18:35 | disposition home health service (06) | DRG 304 ==
PROVIDERS: Admitting Provider Orthopaedic Surgery Orthopaedic Surgery of the Spine; PCP Nurse Practitioner Family; Referring Provider Orthopaedic Surgery Orthopaedic Surgery of the Spine; Visit Provider Orthopaedic Surgery Orthopaedic Surgery of the Spine
PROC: 0SG30AJ Fusion of Lumbosacral Joint with Interbody Fusion Device, Posterior Approach, Anterior Column, Open Approach (ICD-10-PCS; principal; 2022-09-03 10:45)
DX: M48.07 Spinal stenosis, lumbosacral region (principal); M54.17 Radiculopathy, lumbosacral region; M51.26 Other intervertebral disc displacement, lumbar region; E11.9 Type 2 diabetes mellitus without complications; E78.5 Hyperlipidemia, unspecified; Z20.822 Contact with and (suspected) exposure to COVID-19; Z79.84 Long term (current) use of oral hypoglycemic drugs
CPT/HCPCS: 72100; 76000; 82962; 87635; 97116; 97165; 97530; C9803; C1831; C9290; J0171; J0690; J1100; J1170; J2405; J2704; J3010